=== PATIENT | female | born 1970 | race Caucasian/White ===

== ENCOUNTER 2019-05-09 19:56 | Emergency (ER) | payer MEDICAID ==
[~2019-05-09] VITALS: Ht 172.7 cm; Wt 117.9 kg
[2019-05-09 20:11] VITALS: Ht 172.7 cm; Wt 117.9 kg
[2019-05-09] MEDS ORDERED: CYCLOBENZAPRINE10 MG PO (20:15)
[2019-05-09] MEDS ORDERED: GLIPIZIDE10 MG PO (20:15)
[2019-05-09] MEDS ORDERED: NEURONTIN 300300 MG PO (20:16)
[2019-05-09] MEDS ORDERED: MOBIC7.5 MG PO (20:16)
[2019-05-09] MEDS ORDERED: GLUCOPHAGE500 MG PO (20:16)
[2019-05-09] MEDS ORDERED: HYDROCHLOROTHIA25 MG PO (20:16)
[2019-05-09] MEDS ORDERED: ROPINIROLE HCL0.5 MG PO (20:17)
[2019-05-09] MEDS ORDERED: LIPITOR20 MG PO (20:17)
[2019-05-09] MEDS ORDERED: METOPROLOL TART25 MG PO (20:17)
[2019-05-09] MEDS ORDERED: LISINOPRIL5 MG PO (20:17)
[2019-05-09] MEDS ORDERED: SULFAMETHOXAZOL1 TA2 PO (20:18)
[2019-05-09 21:27] LABS: BASOPHILS 0.2 % (0-2); EOSINOPHILS 11.9 % (0-7); HEMATOCRIT 36.9 % (36.0-48.0); HEMOGLOBIN 11.6 g/dL (12-16); IMMATURE GRANULOCYTES 0.5 % (0-5); LYMPHOCYTES 19.8 % (15-50); MCH 27.2 pg (26.0-34.0); MCHC 31.4 g/dL (31.0-37.0); MCV 86.4 fL (80.0-100.0); MEAN PLATELET VOLUME 9.2 fL (7.4-10.4); MONOCYTES 9.4 % (2-11); NEUTROPHILS 58.2 % (40-80); PLATELET COUNT 276 10x3/uL (130-400); RBC 4.27 10x6/uL (4.00-5.40); RDW 14.7 % (11.5-14.5); WBC 8.5 10x3/uL (4.8-10.8)
[2019-05-09 21:36] LABS: ANION GAP 10.2 mmol/L (8-16); CALCIUM 9.7 mg/dL (8.5-10.1); CARBON DIOXIDE 28.6 mmol/L (21.0-32.0); POTASSIUM - SERUM 5.8 mmol/L (3.5-5.1)
[2019-05-09 21:42] LABS: ALBUMIN 3.1 g/dL (3.4-5.0); BILIRUBIN - TOTAL 0.13 mg/dL (0.2-1.3); PROTEIN - SERUM 6.9 g/dL (6.4-8.2)
[2019-05-09 22:40] VITALS: BP 148/96
== END 2019-05-09 22:36 | disposition home or self-care (01) ==
LOC: D.ER 19:56
PROVIDERS: Family Medicine
DX: T37.0X5A Adverse effect of sulfonamides, initial encounter (principal); E87.5 Hyperkalemia; E11.9 Type 2 diabetes mellitus without complications; I10 Essential (primary) hypertension

== ENCOUNTER 2019-05-11 00:15 | Emergency (ER) | payer MEDICAID ==
[~2019-05-11] VITALS: Ht 172.7 cm; Wt 113.6 kg
[~2019-05-11 00:15] MED LIST: CYCLOBENZAPRINE10 MG PO; GLIPIZIDE10 MG PO; GLUCOPHAGE500 MG PO; HYDROCHLOROTHIA25 MG PO; LIPITOR20 MG PO; LISINOPRIL5 MG PO; METOPROLOL TART25 MG PO; MOBIC7.5 MG PO; NEURONTIN 300300 MG PO; ROPINIROLE HCL0.5 MG PO; SULFAMETHOXAZOL1 TA2 PO
[2019-05-11 00:20] VITALS: Ht 172.7 cm; Wt 113.6 kg
[2019-05-11] MEDS ORDERED: MEDROL DOSE PACK4 MG PO (00:53)
[2019-05-11 01:24] VITALS: BP 151/97
== END 2019-05-11 01:24 | disposition home or self-care (01) ==
LOC: D.ER 00:15
DX: R21 Rash and other nonspecific skin eruption (principal); T36.8X5A Adverse effect of other systemic antibiotics, initial encounter

== ENCOUNTER 2019-06-09 15:32 | Emergency (ER) | payer MEDICAID ==
[~2019-06-09] VITALS: Ht 172.7 cm; Wt 131.8 kg
[~2019-06-09 15:32] MED LIST changes: +MEDROL DOSE PACK4 MG PO
[2019-06-09 16:09] VITALS: Ht 172.7 cm; Wt 131.8 kg
[2019-06-09 16:56] LABS: BASOPHILS 0.3 % (0-2); EOSINOPHILS 3.9 % (0-7); HEMATOCRIT 36.4 % (36.0-48.0); HEMOGLOBIN 11.4 g/dL (12-16); IMMATURE GRANULOCYTES 0.3 % (0-5); LYMPHOCYTES 24.5 % (15-50); MCH 27.4 pg (26.0-34.0); MCHC 31.3 g/dL (31.0-37.0); MCV 87.5 fL (80.0-100.0); MEAN PLATELET VOLUME 9.3 fL (7.4-10.4); MONOCYTES 6.5 % (2-11); NEUTROPHILS 64.5 % (40-80); PLATELET COUNT 373 10x3/uL (130-400); RBC 4.16 10x6/uL (4.00-5.40); RDW 14.8 % (11.5-14.5); WBC 14.5 10x3/uL (4.8-10.8)
[2019-06-09 17:09] LABS: CALC OSMOLALITY 282 mosm/kg (275-300); CARBON DIOXIDE 27.6 mmol/L (21.0-32.0); CHLORIDE - SERUM 100 mmol/L (98-107); CREATININE - SERUM 0.9 mg/dL (0.6-1.3); GLUCOSE 131 mg/dL (74-106); POTASSIUM - SERUM 3.9 mmol/L (3.5-5.1); SODIUM 140 mmol/L (136-145); UREA NITROGEN 19 mg/dL (7-18); eGFR NON AFRICAN AMERICAN 70 mL/min (90-120)
[2019-06-09 17:22] LABS: ALBUMIN 3.3 g/dL (3.4-5.0); ALKALINE PHOSPHATASE 155 U/L (46-116); ALT (SGPT) 37 U/L (10-68); BILIRUBIN - TOTAL 0.25 mg/dL (0.2-1.3); CKMB 4.3 U/L (0.0-3.6); CREATINE KINASE 352 UL (21-215); TROPONIN-I < 0.017 ng/mL (0.000-0.060)
[2019-06-09] MEDS ORDERED: ULTRAM50 MG PO (20:06)
[2019-06-09 20:52] VITALS: BP 138/66
== END 2019-06-09 20:52 | disposition home or self-care (01) ==
LOC: D.ER 15:32
PROVIDERS: Family Medicine
DX: M79.605 Pain in left leg (principal); R05 Cough; E11.9 Type 2 diabetes mellitus without complications; Z79.84 Long term (current) use of oral hypoglycemic drugs; I87.2 Venous insufficiency (chronic) (peripheral); M19.90 Unspecified osteoarthritis, unspecified site

== ENCOUNTER 2019-08-15 17:05 | Emergency (ER) | payer OTHER ==
[~2019-08-15] VITALS: Ht 172.7 cm; Wt 135.5 kg
[~2019-08-15 17:05] MED LIST changes: +ULTRAM50 MG PO
[2019-08-15 17:26] VITALS: Ht 172.7 cm; Wt 135.5 kg
[2019-08-15] MEDS ORDERED: ULTRAM50 MG PO (19:40)
[2019-08-15 20:36] VITALS: BP 121/79
== END 2019-08-15 20:15 | disposition home or self-care (01) ==
LOC: D.ER 17:05
DX: M25.562 Pain in left knee (principal); M25.561 Pain in right knee; E66.01 Morbid (severe) obesity due to excess calories; M17.0 Bilateral primary osteoarthritis of knee; E11.9 Type 2 diabetes mellitus without complications; Z79.84 Long term (current) use of oral hypoglycemic drugs

== ENCOUNTER 2019-12-03 23:28 | Inpatient (IN) | payer OTHER ==
[~2019-12-03] VITALS: Ht 172.7 cm; Wt 135.9 kg
[2019-12-04] VITALS: BP 103/65
[2019-12-04 00:35] LABS: BASOPHILS 0.3 % (0-2); HEMATOCRIT 38.8 % (36.0-48.0); HEMOGLOBIN 12.2 g/dL (12-16); IMMATURE GRANULOCYTES 0.5 % (0-5); LYMPHOCYTES 26.5 % (15-50); MCH 26.3 pg (26.0-34.0); MCHC 31.4 g/dL (31.0-37.0); MCV 83.6 fL (80.0-100.0); MEAN PLATELET VOLUME 9.5 fL (7.4-10.4); MONOCYTES 7.5 % (2-11); NEUTROPHILS 63.2 % (40-80); PLATELET COUNT 413 10x3/uL (130-400); RBC 4.64 10x6/uL (4.00-5.40); RDW 15.2 % (11.5-14.5); WBC 15.3 10x3/uL (4.8-10.8)
[2019-12-04 00:44] LABS: CALC OSMOLALITY 283 mosm/kg (275-300); CALCIUM 10.1 mg/dL (8.5-10.1); CARBON DIOXIDE 24.5 mmol/L (21.0-32.0); CHLORIDE - SERUM 93 mmol/L (98-107); CREATININE - SERUM 2.4 mg/dL (0.6-1.3); GLUCOSE 301 mg/dL (74-106); POTASSIUM - SERUM 4.8 mmol/L (3.5-5.1); SODIUM 130 mmol/L (136-145); UREA NITROGEN 46 mg/dL (7-18); eGFR NON AFRICAN AMERICAN 23 mL/min (90-120)
[2019-12-04 01:20] LABS: ALBUMIN 3.5 g/dL (3.4-5.0); ALKALINE PHOSPHATASE 158 U/L (30-120); ALT (SGPT) 34 U/L (10-68); C-REACTIVE PROTEIN 11.3 mg/dL (0.0-0.9); CREATINE KINASE 572 UL (21-215); MAGNESIUM - SERUM 1.9 mg/dL (1.8-2.4); PRO BNP 27 pg/mL (0-125); PROTEIN - SERUM 7.9 g/dL (6.4-8.2); THYROID STIMULATING HORMONE 1.75 uIU/mL (0.36-3.74); TROPONIN-I < 0.017 ng/mL (0.000-0.060)
[2019-12-04 01:22] LABS: CKMB 6.8 U/L (0.0-3.6)
[2019-12-04 02:05] LABS: UDS - AMPHET POSITIVE QUAL (NEGATIVE); UDS - BARB NEGATIVE QUAL (NEGATIVE); UDS - BENZO NEGATIVE QUAL (NEGATIVE); UDS - COCAINE NEGATIVE QUAL (NEGATIVE); UDS - OPIATE NEGATIVE QUAL (NEGATIVE); UDS - PCP NEGATIVE QUAL (NEGATIVE); UDS - THC POSITIVE QUAL (NEGATIVE)
[2019-12-04 02:10] LABS: BILIRUBIN NEGATIVE (NEGATIVE); GLUCOSE 250 mg/dL (NEGATIVE); KETONE NEGATIVE (NEGATIVE); NITRITE NEGATIVE (NEGATIVE); UROBILINOGEN NORMAL (NORMAL)
[2019-12-04 02:12] LABS: BACTERIA MANY /hpf (NEGATIVE); EPITHELIAL CELLS 0-5 /hpf (0-5); HYALINE CAST 0-5 /lpf (NONE SEEN); RED CELLS - URINE 0-5 /hpf (0-5); WHITE CELLS - URINE 0-5 /hpf (NEGATIVE)
[2019-12-04] MEDS ORDERED: ALDACTONE50 MG PO (03:46)
[2019-12-04] MEDS ORDERED: JANUVIA50 MG PO (03:48)
[2019-12-04 09:32] VITALS: BP 112/54
--- NOTE | 2019-12-04 13:34 | NUR ---
I have reviewed this patient and I concur with the Shift Assessment completed by the Licensed Practical Nurse today this shift.
[2019-12-04 13:39] VITALS: BP 146/76
[2019-12-04 16:00] VITALS: BP 114/87
[2019-12-04 18:38] LABS: APTT 25.6 SECONDS (22.8-39.4); INR 1.05 (0.85-1.17); PROTIME 13.7 SECONDS (11.6-15.0)
[2019-12-04 18:55] LABS: CKMB 3.4 U/L (0.0-3.6)
[2019-12-04 18:56] LABS: CREATINE KINASE 330 UL (21-215); TROPONIN-I < 0.017 ng/mL (0.000-0.060)
--- NOTE | 2019-12-04 19:30 | NUR ---
PT IN BED, AAO X 3, RESP EVEN AND UNLABORED. NO DISTRESS NOTED, CL IN REACH, SR UP X 2.
[2019-12-04 20:00] VITALS: BP 111/71
[2019-12-04 23:51] LABS: CKMB 2.8 U/L (0.0-3.6); CREATINE KINASE 301 UL (21-215)
[2019-12-04 23:55] LABS: TROPONIN-I < 0.017 ng/mL (0.000-0.060)
[2019-12-05 04:00] VITALS: BP 121/58
[2019-12-05 04:56] LABS: BASOPHILS 0.4 % (0-2); HEMATOCRIT 33.5 % (36.0-48.0); HEMOGLOBIN 10.4 g/dL (12-16); IMMATURE GRANULOCYTES 0.2 % (0-5); LYMPHOCYTES 33.1 % (15-50); MCH 26.3 pg (26.0-34.0); MCV 84.8 fL (80.0-100.0); MEAN PLATELET VOLUME 9.2 fL (7.4-10.4); MONOCYTES 6.9 % (2-11); NEUTROPHILS 53.4 % (40-80); PLATELET COUNT 340 10x3/uL (130-400); RBC 3.95 10x6/uL (4.00-5.40); RDW 15.1 % (11.5-14.5)
[2019-12-05 05:37] LABS: ALBUMIN 2.8 g/dL (3.4-5.0); ALKALINE PHOSPHATASE 117 U/L (30-120); ALT (SGPT) 31 U/L (10-68); CALCIUM 8.3 mg/dL (8.5-10.1); CARBON DIOXIDE 24.5 mmol/L (21.0-32.0); CHLORIDE - SERUM 103 mmol/L (98-107); CKMB 2.3 U/L (0.0-3.6); CREATINE KINASE 250 UL (21-215); MAGNESIUM - SERUM 1.7 mg/dL (1.8-2.4); POTASSIUM - SERUM 4.4 mmol/L (3.5-5.1); PROTEIN - SERUM 6.6 g/dL (6.4-8.2); SODIUM 135 mmol/L (136-145)
[2019-12-05 05:47] LABS: CALC OSMOLALITY 275 mosm/kg (275-300); CREATININE - SERUM 0.8 mg/dL (0.6-1.3); GLUCOSE 180 mg/dL (74-106); TROPONIN-I < 0.017 ng/mL (0.000-0.060); UREA NITROGEN 15 mg/dL (7-18); eGFR NON AFRICAN AMERICAN 80 mL/min (90-120)
[2019-12-05 07:43] VITALS: BP 142/82
[2019-12-05 11:51] VITALS: BP 142/69
[2019-12-05 13:22] VITALS: Ht 172.7 cm; Wt 135.9 kg
--- NOTE | 2019-12-05 13:39 | NUR ---
I have reviewed this patient and I concur with the Shift Assessment completed by the Licensed Practical Nurse today this shift.
[2019-12-05 15:52] VITALS: BP 148/81
--- NOTE | 2019-12-05 19:05 | NUR ---
BEDSIDE REPORT RECEIVED, PT CARE ASSUMED. INTRODUCED SELF AND WROTE NAME ON BOARD. PT SITTING UP IN BED, WATCHING TV, AAOX4. DENIES PAIN OR ANY NEEDS AT THIS TIME. BED IN LOWEST, SR X1, CALL LIGHT WITHIN REACH. WILL CTM.
[2019-12-05 20:16] VITALS: BP 156/90
[2019-12-05 23:37] VITALS: BP 135/83
[2019-12-06 05:17] LABS: BASOPHILS 0.4 % (0-2); EOSINOPHILS 4.4 % (0-7); IMMATURE GRANULOCYTES 0.2 % (0-5); LYMPHOCYTES 29.1 % (15-50); MCHC 30.3 g/dL (31.0-37.0); MCV 85.9 fL (80.0-100.0); MEAN PLATELET VOLUME 9.5 fL (7.4-10.4); MONOCYTES 7.7 % (2-11); NEUTROPHILS 58.2 % (40-80); PLATELET COUNT 315 10x3/uL (130-400); RBC 3.84 10x6/uL (4.00-5.40); RDW 15.1 % (11.5-14.5); WBC 8.6 10x3/uL (4.8-10.8)
[2019-12-06 05:39] LABS: ALBUMIN 2.5 g/dL (3.4-5.0); ANION GAP 11.2 mmol/L (8-16); BILIRUBIN - TOTAL 0.16 mg/dL (0.2-1.3); CALCIUM 8.3 mg/dL (8.5-10.1); CARBON DIOXIDE 25.5 mmol/L (21.0-32.0); CREATININE - SERUM 0.9 mg/dL (0.6-1.3); MAGNESIUM - SERUM 1.8 mg/dL (1.8-2.4); POTASSIUM - SERUM 4.7 mmol/L (3.5-5.1); PROTEIN - SERUM 6.2 g/dL (6.4-8.2)
--- NOTE | 2019-12-06 07:48 | NUR ---
PT AWAKE AND OREINTED, LYING IN BED. NO COMPLAINTS OR CONCERNS. ALL QUESTIONS ANSWERED TO THE BEST OF MY ABILITY.. CL IN REACH SRX2.
[2019-12-06 09:40] VITALS: BP 133/85
--- NOTE | 2019-12-06 11:23 | NUR ---
I have reviewed this patient and I concur with the Shift Assessment completed by the Licensed Practical Nurse today this shift.
--- NOTE | 2019-12-06 12:35 | NUR ---
PT AWAKE AND ORIENTED, SITTING UP IN BED. TOLERATED REGULAR LUNCH WITHOUT DIFFICULTY OR SIDE EFFECTS. NO COMPLAINTS OR CONCERNS AT THIS TIME, ALL QUESTIONS ANSWERED TO THE BEST OF MY ABILITY. CL IN REACH,S RX2.
[2019-12-06 13:12] VITALS: BP 152/78
[2019-12-06] MEDS ORDERED: CLINDAMYCIN HC300 MG PO (13:23)
--- NOTE | 2019-12-06 14:46 | NUR ---
D/C PAPERWORD ADMINISTERED. PT CALLED DAIANA, SHOULD BE HERE BY 1500ISH.
--- NOTE | 2019-12-06 15:00 | NUR ---
PT ESCORTED OUT VIA WHEELCHIAR TO POV, SON DRIVING.
--- NOTE | 2019-12-07 08:56 | EC ---
PATIENT:JATIN BENITEZ DATE OF SERVICE: 12/04/19 SEX: F MEDICAL RECORD: [id number] DATE OF : [birth year] LOCATION:D.M2 D.213 AGE OF PATIENT: 49 ADMISSION DATE: 12/04/19 REFERRING PHYSICIAN: INTERPRETING PHYSICIAN: RUIZ PASTOR MD ECHOCARDIOGRAM REPORT ECHO CHARGES 4 ECHO COMPLETE Date: 12/05/19 CLINICAL DIAGNOSIS: METH USE ECHOCARDIOGRAPHIC MEASUREMENTS (adult normal given) AC root (d.<3.7cm) 3.0 cm LV Septum d (<1.2 cm> 0.7 cm Valve Excursion 1.6 cm LV Septum (systole) 0.8 cm Left Atria (s.<4.0cm> 3.7 cm LVPW d(<1.2cm) 0.9 cm RV (d.<2.3cm) 3.4 cm LVPW (sytole) 1.3 cm LV diastole(<5.6CM) 4.0 cm MV E-F(>70mm/sec) cm LV systole 3.5 cm LVOT Diameter 1.5 cm MV exc.(>10mm) cm Est.ejection fraction (50-75%) % DOPPLER: LVIT cm/sec A 116 cm/sec E 106 cm/sec LA cm/sec RVSP 17.9 mmHg LVOT 120 cm/sec AOP1/2T m/s Asc. Ao 155 cm/sec RVOT 65 cm/sec RA cm/sec PA 75 cm/sec AV Gradient Peak 9.6 mmHg AV Mean 4.7 mmHg AV Area 1.3 cm MV Gradient Peak 5.4 mmHg MV Mean 3.8 mmHg MV Area cm COMMENTS: Communications Programmer: Ivan [facility] Bomb Squad Commander: 3 Dr. Castro TAPE# PACS Pericardial Effusion N DATE OF SERVICE: Adequate 2D, color flow imaging, spectral Doppler, and M-Mode No LVH. LV internal dimension is normal. Wall motion is normal. EF is greater than or equal to 55%. Aortic valve is tricuspid. No evidence of stenosis by Doppler interrogation. Left atrium is normal at 3.4 cm. Mitral valve shows no prolapse. Trace MR. Right-sided chambers are grossly normal. Trace TR. TRANSINT:[id number] Voice Confirmation ID: [id number] DOCUMENT ID: [id number] ECHOCARDIOGRAM REPORT [id number] JATIN BENITEZ RUIZ PASTOR MD at 0856 CC: [id number] DICTATION DATE: 12/06/19 0954 P[employer]DER AND PRIMER CANNING LEADER: 12/06/19 1455 DIS IN 12/06/19 [id number] [place] [address]
== END 2019-12-06 15:01 | disposition home or self-care (01) | DRG 683 ==
LOC: D.ER 23:28 → D.M2 12-04 02:06
PROVIDERS: Family Medicine; ADMIT Family Medicine; ATTEND Family Medicine
DX: N17.9 Acute kidney failure, unspecified (principal); N39.0 Urinary tract infection, site not specified; E87.1 Hypo-osmolality and hyponatremia; K04.7 Periapical abscess without sinus; E11.65 Type 2 diabetes mellitus with hyperglycemia; F15.90 Other stimulant use, unspecified, uncomplicated; F12.90 Cannabis use, unspecified, uncomplicated

== ENCOUNTER 2020-01-25 00:44 | Emergency (ER) | payer OTHER ==
[~2020-01-25] VITALS: Ht 172.7 cm; Wt 113.6 kg
[~2020-01-25 00:44] MED LIST changes: +ALDACTONE50 MG PO; +CLINDAMYCIN HC300 MG PO; +JANUVIA50 MG PO
[2020-01-25 00:53] VITALS: Ht 172.7 cm; Wt 113.6 kg
[2020-01-25] MEDS ORDERED: SILVADENE20 GM TP (01:00)
[2020-01-25 01:50] VITALS: BP 131/77
== END 2020-01-25 01:50 | disposition home or self-care (01) ==
LOC: D.ER 00:44
DX: T24.201A Burn of second degree of unspecified site of right lower limb, except ankle and foot, initial encounter (principal); E11.9 Type 2 diabetes mellitus without complications; Z72.0 Tobacco use; Z79.84 Long term (current) use of oral hypoglycemic drugs; X19.XXXA Contact with other heat and hot substances, initial encounter; Y93.9 Activity, unspecified; Y92.9 Unspecified place or not applicable

== ENCOUNTER 2020-12-10 16:22 | Inpatient (IN) | payer OTHER ==
[~2020-12-10] VITALS: Ht 172.7 cm; Wt 125.2 kg
[2020-12-10] VITALS (10 sets, daily range): BP systolic 77–115; BP diastolic 46–70
[~2020-12-10 16:22] MED LIST changes: +MACROBID100 MG PO; +NAPROSYN500 MG PO; +SILVADENE20 GM TP
[2020-12-10] MEDS ORDERED: JANUVIA100 MG PO (16:32)
[2020-12-10 17:06] LABS: APTT 25.3 SECONDS (22.8-39.4); CALC OSMOLALITY 287 mosm/kg (275-300); CALCIUM 10.5 mg/dL (8.5-10.1); CARBON DIOXIDE 23.2 mmol/L (21.0-32.0); CHLORIDE - SERUM 95 mmol/L (98-107); CREATININE - SERUM 4.4 mg/dL (0.6-1.3); INR 1.14 (0.85-1.17); POTASSIUM - SERUM 4.8 mmol/L (3.5-5.1); PROTIME 13.5 SECONDS (11.6-15.0); SODIUM 133 mmol/L (136-145); UREA NITROGEN 63 mg/dL (7-18); eGFR NON AFRICAN AMERICAN 11 mL/min (90-120)
[2020-12-10 17:14] LABS: GLUCOSE 172 mg/dL (74-106)
[2020-12-10 17:21] LABS: ALBUMIN 3.8 g/dL (3.4-5.0); ALKALINE PHOSPHATASE 131 U/L (30-120); ALT (SGPT) 28 U/L (10-68); BILIRUBIN - TOTAL 0.55 mg/dL (0.2-1.3); CKMB 4.8 U/L (0.0-3.6); CREATINE KINASE 407 UL (21-215); PROTEIN - SERUM 7.9 g/dL (6.4-8.2); TROPONIN-I < 0.017 ng/mL (0.000-0.060)
[2020-12-10 17:32] LABS: BASOPHILS 0.7 % (0-2); EOSINOPHILS 0.4 % (0-7); HEMATOCRIT 37.1 % (36.0-48.0); HEMOGLOBIN 11.9 g/dL (12-16); LYMPHOCYTES 14.4 % (15-50); MCH 27.2 pg (26.0-34.0); MCHC 32.1 g/dL (31.0-37.0); MCV 84.9 fL (80.0-100.0); MONOCYTES 5.9 % (2-11); NEUTROPHILS 78.6 % (40-80); PLATELET COUNT 414 10x3/uL (130-400); RBC 4.37 10x6/uL (4.00-5.40); RDW 14.9 % (11.5-14.5); WBC 24.4 10x3/uL (4.8-10.8)
--- NOTE | 2020-12-10 19:47 | NUR ---
PT ASSISTED UP TO BEDSIDE COMMODE.
[2020-12-10 20:17] LABS: UDS - AMPHET POSITIVE QUAL (NEGATIVE); UDS - BARB NEGATIVE QUAL (NEGATIVE); UDS - BENZO NEGATIVE QUAL (NEGATIVE); UDS - COCAINE NEGATIVE QUAL (NEGATIVE); UDS - OPIATE NEGATIVE QUAL (NEGATIVE); UDS - PCP NEGATIVE QUAL (NEGATIVE); UDS - THC NEGATIVE QUAL (NEGATIVE)
--- NOTE | 2020-12-10 20:24 | NUR ---
PT ASSISTED UP TO BEDSIDE COMMODE AND CHANGED INTO CLEAN GOWN. DENIES NEEDS. CALL LIGHT IN REACH.
[2020-12-10 20:27] LABS: NITRITE NEGATIVE (NEGATIVE)
[2020-12-10 20:28] LABS: BILIRUBIN NEGATIVE (NEGATIVE); KETONE NEGATIVE (NEGATIVE); UROBILINOGEN NORMAL mg/dL (< 2)
[2020-12-10 20:29] LABS: BACTERIA MODERATE HPF (NONE SEEN); SQUAMOUS EPITHELIAL 0-5 HPF (0-4)
--- NOTE | 2020-12-10 21:30 | NUR ---
INFORMED EDP OF PTS , KIRK JIMENEZ CONTACTED, PT STATUS CHANGED TO BE ADMITTED TO ICU, PROMOTIONS REPRESENTATIVE INFORMED.
--- NOTE | 2020-12-10 23:02 | NUR ---
PT IV NS BOLUS FINISHED
[2020-12-11] VITALS (16 sets, daily range): BP systolic 87–118; BP diastolic 49–74; Ht 172.7 cm; Wt 125.2 kg
[2020-12-11] MEDS ORDERED: TRULICITY0.75 MG/0. SC (00:36)
[2020-12-11 05:38] LABS: EOSINOPHILS 2.7 % (0-7); HEMATOCRIT 32.9 % (36.0-48.0); HEMOGLOBIN 10.7 g/dL (12-16); MCH 27.5 pg (26.0-34.0); MCHC 32.4 g/dL (31.0-37.0); MCV 84.8 fL (80.0-100.0); MEAN PLATELET VOLUME 8.1 fL (7.4-10.4); MONOCYTES 6.7 % (2-11); NEUTROPHILS 72.6 % (40-80); RBC 3.88 10x6/uL (4.00-5.40); RDW 15.1 % (11.5-14.5)
[2020-12-11 05:45] LABS: PLATELET COUNT 317 10x3/uL (130-400); WBC 15.5 10x3/uL (4.8-10.8)
[2020-12-11 06:06] LABS: ANION GAP 15.7 mmol/L (8-16); BILIRUBIN - TOTAL 0.45 mg/dL (0.2-1.3); CARBON DIOXIDE 23.1 mmol/L (21.0-32.0); MAGNESIUM - SERUM 1.6 mg/dL (1.8-2.4); POTASSIUM - SERUM 4.8 mmol/L (3.5-5.1); PROTEIN - SERUM 6.5 g/dL (6.4-8.2)
[2020-12-11 06:07] LABS: CREATININE - SERUM 2.6 mg/dL (0.6-1.3)
--- NOTE | 2020-12-11 09:16 | NUR ---
PER JAYDA, RENAL DIRECTOR MATERNAL CHILD, WILL RECHECK TROPONIN LEVELS AND IF IS NORNAL THEN OKAY TO START PT ON A DIABETIC RENAL DIET.
[2020-12-11 09:52] LABS: CKMB 2.4 U/L (0.0-3.6)
[2020-12-11 09:54] LABS: CREATINE KINASE 228 UL (21-215); TROPONIN-I < 0.017 ng/mL (0.000-0.060)
--- NOTE | 2020-12-11 10:17 | NUR ---
DR SAINI IS AWARE OF CONSULT AND HAS SEEN PT. ALSO AT THIS TIME PTS TROPONIN LEVEL IS RESULTED AND THERE IS NO ELEVATION. DIABETIC RENAL DIET STARTED PER RENAL ORDERS. VSS. WILL CONTINUE PLAN OF CARE.
--- NOTE | 2020-12-11 11:43 | NUR ---
PER DR DIAZ, OKAY TO TRANSFER TO FLOOR IF OKAY WITH CARDIOLOGY. PER CARDIOLOGY THIS IS OKAY.
--- NOTE | 2020-12-11 13:43 | NUR ---
SPOKE WITH JAYDA, RENAL SHED WORKERS SUPERVISOR, NOTIFIED PROVIDER THAT PT VOIDED 650 ML URINE AT THIS TIME VIA BEDSIDE TOILET AND ASKED TO VERIFY IF THEY STILL WANTED PT TO HAVE A CARDOSO PLACED; JAYDA STATED OKAY TO HOLD THIS ORDER UNTIL RENAL PHYSICIAN ROUNDES AND DECIDES. ALSO RECIEVED ORDER TO START INSULIN SLIDING SCALE LOW RESISTANCE. ORDERS PLACED.
--- NOTE | 2020-12-11 13:45 | NUR ---
NOTED PT TO TRANSFER TO ROOM 2234. WILL CALL REPORT SHORTLY.
--- NOTE | 2020-12-11 14:32 | NUR ---
1430 REPORT RECEIVED FROM FERNANDO MANNING IN ICU
--- NOTE | 2020-12-11 14:48 | NUR ---
REPORT CALLED TO FERNANDO ALAS, WILL TRANSFER PT SHORTLY.
--- NOTE | 2020-12-11 15:08 | NUR ---
PT TRANSFERRED TO ROOM 2234 AT THIS TIME VIA WHEELCHAIR WITH ALL PERSONAL ITEMS. NO ACUTE DISTRESS NOTED. NO FURTHER ACTIONS.
--- NOTE | 2020-12-12 02:28 | NUR ---
I have reviewed this patient and I concur with the Shift Assessment completed by the Licensed Practical Nurse today this shift.
[2020-12-12 06:23] LABS: BASOPHILS 1.3 % (0-2); EOSINOPHILS 6.2 % (0-7); HEMATOCRIT 29.9 % (36.0-48.0); HEMOGLOBIN 9.9 g/dL (12-16); MCH 27.9 pg (26.0-34.0); MCV 84.6 fL (80.0-100.0); MEAN PLATELET VOLUME 8.1 fL (7.4-10.4); MONOCYTES 7.2 % (2-11); NEUTROPHILS 54.3 % (40-80); PLATELET COUNT 284 10x3/uL (130-400); RBC 3.53 10x6/uL (4.00-5.40); RDW 14.7 % (11.5-14.5)
[2020-12-12 06:44] LABS: WBC 8.3 10x3/uL (4.8-10.8)
[2020-12-12 07:23] LABS: ALBUMIN 2.6 g/dL (3.4-5.0); ANION GAP 16.4 mmol/L (8-16); BILIRUBIN - TOTAL 0.13 mg/dL (0.2-1.3); CALCIUM 7.8 mg/dL (8.5-10.1); CARBON DIOXIDE 21.2 mmol/L (21.0-32.0); MAGNESIUM - SERUM 1.4 mg/dL (1.8-2.4); POTASSIUM - SERUM 4.6 mmol/L (3.5-5.1); PROTEIN - SERUM 5.6 g/dL (6.4-8.2)
[2020-12-12 07:29] LABS: CREATININE - SERUM 1.2 mg/dL (0.6-1.3)
[2020-12-12 08:50] VITALS: BP 99/51
[2020-12-12 13:31] VITALS: BP 118/52
--- NOTE | 2020-12-12 14:07 | NUR ---
0700 BEDSODE REPORT RECEIVED ASLEEP IN BED AWAKENS TO VOICE NO C/O AT THIS TIME
--- NOTE | 2020-12-12 14:50 | EC ---
PATIENT:JATIN BENITEZ DATE OF SERVICE: 12/10/20 SEX: F MEDICAL RECORD: [id number] DATE OF : [birth year] LOCATION:D.MS Leo AGE OF PATIENT: 50 ADMISSION DATE: 12/10/20 REFERRING PHYSICIAN: INTERPRETING PHYSICIAN: ZUHAIR ROSAS MD ECHOCARDIOGRAM REPORT ECHO CHARGES 4 ECHO COMPLETE Date: 12/11/20 CLINICAL DIAGNOSIS: HYPOTENSION, CP, DYSPNEA ECHOCARDIOGRAPHIC MEASUREMENTS (adult normal given) AC root (d.<3.7cm) 3.5 cm LV Septum d (<1.2 cm> 0.8 cm Valve Excursion 1.3 cm LV Septum (systole) 0.9 cm Left Atria (s.<4.0cm> 3.6 cm LVPW d(<1.2cm) 0.8 cm RV (d.<2.3cm) 3.7 cm LVPW (sytole) 1.0 cm LV diastole(<5.6CM) 5.6 cm MV E-F(>70mm/sec) cm LV systole 4.5 cm LVOT Diameter 1.7 cm MV exc.(>10mm) 1.8 cm Est.ejection fraction (50-75%) % DOPPLER: LVIT cm/sec A 84 cm/sec E 67 cm/sec LA cm/sec RVSP 33 mmHg LVOT 124 cm/sec AOP1/2T m/s Asc. Ao 240 cm/sec RVOT 82 cm/sec RA cm/sec PA 101 cm/sec AV Gradient Peak 23.0 mmHg AV Mean 19.7 mmHg AV Area 0.6 cm MV Gradient Peak 4.2 mmHg MV Mean 2.8 mmHg MV Area cm COMMENTS: Data Reviewer: Ivan CHASE Autoglazier: 5 Dr. Rosas TAPE# Pericardial Effusion N DATE OF SERVICE: CLINICAL DIAGNOSES: Chest pain, dyspnea. INTERPRETATION: Normal left ventricular chamber size and contractile function. Ejection fraction 55% to 60%. FINDINGS: Left atrial chamber appears normal. Right atrium and right ventricular chamber size and function appears normal. Aortic valve appears normal. No aortic stenosis/regurgitation. Mitral valve appears normal. No ECHOCARDIOGRAM REPORT [id number] JATIN BENITEZ mitral stenosis/regurgitation. Tricuspid valve appears normal. Trace tricuspid regurgitation. Pulmonic valve not well visualized. No pulmonary regurgitation noted. No pericardial effusion visualized. IMPRESSION: Normal left ventricular chamber size and contractile function with ejection fraction of 55% to 60%. TRANSINT:[id number] Voice Confirmation ID: [id number] DOCUMENT ID: [id number] ZUHAIR ROSAS MD at 1450 CC: [id number] DICTATION DATE: 12/11/20 170 BOOKS BINDER: 12/11/201922 ADM IN [facility] [address] [id number]
[2020-12-12 17:08] VITALS: BP 103/68
--- NOTE | 2020-12-12 19:00 | NUR ---
BEDSIDE REPORT RECEIVED AND CARE OF PT ASSUMED. PT LYING IN LOW SWEENEY'S POSITION WITH EYES CLOSED. IV TO RIGHT FA PATENT WITH NS INFUSING AT 150 ML/HR. TELEMETRY IN USE AND READING SR AT THIS ASSESSMENT. WILL MONITOR FOR NEEDS.
[2020-12-12 20:00] VITALS: BP 98/51
--- NOTE | 2020-12-12 20:45 | NUR ---
HS MEDICATIONS GIVEN TO INCLUDE MAG OX 400 MG PO PER THE ELECTROLYTE PROTOCAL.
--- NOTE | 2020-12-12 20:55 | NUR ---
FSBS 161 THIS CHECK REQUIRING COVERAGE WITH 2 UNITS OF INSULIN PER SLIDING SCALE. GAVE RUSSEL HORTONERS FOR HS SNACK.
[2020-12-13] VITALS: BP 115/66
[2020-12-13 04:00] VITALS: BP 101/59
[2020-12-13 06:29] LABS: BASOPHILS 1.2 % (0-2); EOSINOPHILS 7.4 % (0-7); HEMATOCRIT 29.5 % (36.0-48.0); HEMOGLOBIN 9.8 g/dL (12-16); LYMPHOCYTES 34.3 % (15-50); MCH 28.2 pg (26.0-34.0); MCHC 33.4 g/dL (31.0-37.0); MCV 84.5 fL (80.0-100.0); MEAN PLATELET VOLUME 8.1 fL (7.4-10.4); NEUTROPHILS 50.1 % (40-80); PLATELET COUNT 287 10x3/uL (130-400); RBC 3.49 10x6/uL (4.00-5.40); RDW 14.7 % (11.5-14.5); WBC 8.4 10x3/uL (4.8-10.8)
[2020-12-13 06:37] LABS: ALBUMIN 2.6 g/dL (3.4-5.0); ANION GAP 10.7 mmol/L (8-16); BILIRUBIN - TOTAL 0.15 mg/dL (0.2-1.3); CALCIUM 8.1 mg/dL (8.5-10.1); CARBON DIOXIDE 24.4 mmol/L (21.0-32.0); MAGNESIUM - SERUM 1.4 mg/dL (1.8-2.4); POTASSIUM - SERUM 4.1 mmol/L (3.5-5.1); PROTEIN - SERUM 6.1 g/dL (6.4-8.2)
[2020-12-13 10:49] VITALS: BP 131/65
[2020-12-13 12:28] VITALS: BP 177/71
[2020-12-14 10:11] LABS: HEPATITIS C ANTIBODY <0.1 S/CO RAT (0.0-0.9)
== END 2020-12-13 18:33 | disposition home or self-care (01) | DRG 872 ==
LOC: D.ER 16:22 → D.ICU 20:42 → D.MS 20:42 → D.ICU 21:49 → D.MS 12-11 15:16
PROVIDERS: Emergency Medicine; Internal Medicine; ADMIT Family Medicine Adult Medicine; ATTEND Family Medicine Adult Medicine
DX: A41.9 Sepsis, unspecified organism (principal); N39.0 Urinary tract infection, site not specified; E87.1 Hypo-osmolality and hyponatremia; N17.9 Acute kidney failure, unspecified; I20.0 Unstable angina; E11.65 Type 2 diabetes mellitus with hyperglycemia; F15.90 Other stimulant use, unspecified, uncomplicated; E83.52 Hypercalcemia; E11.40 Type 2 diabetes mellitus with diabetic neuropathy, unspecified; G25.81 Restless legs syndrome; I10 Essential (primary) hypertension; Z87.891 Personal history of nicotine dependence